=== PATIENT | female | born 1990 | race Caucasian/White ===

== ENCOUNTER 2022-10-20 11:17 | Inpatient (IN) ==
--- NOTE | 2022-10-20 11:30 | Emergency Department Note ---
History of Present Illness General Chief complaint: Abdominal Pain Stated complaint: abd pain Time Seen by Provider: 10/20/22 11:23 History of Present Illness This 31 year old female presents to the emergency department via EMS for evaluation of epigastric and RUQ abdominal pain. Around 9 am this morning she felt like she had a rib cramp and now has pain radiating from her RUQ to her lower abdomen as well as to her chest and shoulders. She then developed nausea and felt like she was going to have diarrhea. Did not have any diarrhea though. Has a BM 3-4 times a week that is usually softer since her bypass surgery. Denies hematochezia or melena. Denies any urinary symptoms or vaginal discharge. Currently has her period. It now hurts to move, talk, or breathe from the pain. She has a history of gastric bypass surgery in 2019 and also has PCOS. History of kidney stones, but this feels different. Denies any injury or trauma. Has not taken anything for the symptoms yet. Allergies Allergy/AdvReac Type Severity Reaction Status Date / Time No Known Allergies Allergy Verified 10/20/22 11:28 Past Med/Surg History Medical History (Updated 10/20/22 @ 18:23 by Veronica Mchugh PA-C) Obesity PCOS (polycystic ovarian syndrome) Surgical History H/O gastric bypass Social History Smoking Status: Unknown if ever smoked Feels Safe at Home: Yes Review of Systems See HPI for pertinent positives & negatives. Physical Exam Vital Signs Vital Signs - 24 hr 10/20/22 11:39 10/20/22 11:39 10/20/22 13:46 Temperature 37 C Temperature Source Oral Pulse Rate 70 Pulse Rate [Apical] 71 82 Respiratory Rate 16 16 16 Respiratory Effort / Characteristics Respiratory Depth Respiratory Pattern Blood Pressure 131/75 Blood Pressure [Left Arm] Blood Pressure Mean 93 Blood Pressure Mean [Left Arm] Pulse Oximetry 99 98 95 Oxygen Delivery Method Room Air Sepsis Recent Fever Within 48 Hours No Sepsis New/Unexplained Change in Mental Status N/A Sepsis Action Taken by Nursing No Action Required 10/20/22 16:32 10/20/22 16:50 10/20/22 17:00 Temperature 37.6 C H Temperature Source Oral Pulse Rate 98 H Pulse Rate [Apical] 100 H 82 Respiratory Rate 16 16 18 Respiratory Effort / Characteristics Non-Labored Spontaneous Respiratory Depth Normal Respiratory Pattern Regular Blood Pressure 122/72 Blood Pressure [Left Arm] 122/72 125/71 Blood Pressure Mean Blood Pressure Mean [Left Arm] 88 89 Pulse Oximetry 99 98 99 Oxygen Delivery Method Room Air Room Air Room Air Sepsis Recent Fever Within 48 Hours Sepsis New/Unexplained Change in Mental Status Sepsis Action Taken by Nursing VITALS: Vitals are noted on the nurse's note and reviewed by myself. GENERAL: The patient appears in pain and nauseous, but nontoxic, in no acute distress, and non-diaphoretic. SKIN: Capillary refill <2 sec. EARS: External auditory canals clear, tympanic membranes pearly larios without erythema or effusion bilaterally. EYES: PERRLA. EOMI. Conjunctivae without injection, sclerae without icterus. NOSE: Patent without discharge. MOUTH: Mucous membranes moist. Uvula midline. Airway patent. NECK: Supple without nuchal rigidity. HEART: Regular rate and rhythm without murmurs gallops or rubs. LUNGS: Clear to auscultation bilaterally without wheezes, rales or rhonchi. No retractions or accessory muscle use. ABDOMEN: Positive bowel sounds x 4. Normal tympanic percussion. Soft, significantly tender to palpation in the right upper quadrant and epigastric area, but also diffusely tender to palpation. No masses or organomegaly. Mild guarding without rebound tenderness. No rigidity. MUSCULOSKELETAL: No gross musculoskeletal defects. NEURO: Patient was alert and oriented to person place and time. No focal neurological deficits. Course Administered Medications Discontinued Medications Fentanyl Citrate (Fentanyl Citrate 100 Mcg/2 Ml Vial) 50 mcg IV NOW STA Stop: 10/20/22 16:13 Last Admin: 10/20/22 16:24 Dose: 50 mcg Documented By: EDA Piperacillin Sod/Tazobactam Sod (Zosyn) 4.5 gm in 120 mls @ 240 mls/hr IV NOW ONE Stop: 10/20/22 16:33 Last Admin: 10/20/22 16:23 Dose: 240 mls/hr Documented By: EDA Sodium Chloride (Nss 1000ml) 1,000 mls @ 999 mls/hr IV .Q1H1M ONE Stop: 10/20/22 17:04 Last Admin: 10/20/22 16:24 Dose: 999 mls/hr Documented By: EDA Ioversol (Optiray 350 100ml) 87 ml IV ONCE ONE Stop: 10/20/22 14:46 Last Admin: 10/20/22 14:45 Dose: 87 ml Documented By: BETSY Ketorolac Tromethamine (Ketorolac Tromethamine 15 Mg/Ml Vial) 10 mg IV NOW ONE Stop: 10/20/22 12:18 Last Admin: 10/20/22 12:36 Dose: 10 mg Documented By: EDA Morphine Sulfate (Morphine Sulfate 4 Mg/Ml 1 Ml Carp\Vial) 4 mg IV NOW STA Stop: 10/20/22 13:30 Last Admin: 10/20/22 13:42 Dose: 4 mg Documented By: EDA Ondansetron HCl (Ondansetron Inj 2 Mg/Ml 2 Ml Vial) 4 mg IV NOW STA Stop: 10/20/22 12:18 Last Admin: 10/20/22 12:36 Dose: 4 mg Documented By: EDA Medical Decision Making Differential Diagnosis Differential diagnosis includes hepatitis, pancreatitis, cholecystitis, cholelithiasis, appendicitis, kidney stone, pyelonephritis, UTI, gastritis, gastroenteritis, mesenteric adenitis, obstruction, constipation, hernia, abdominal abscess, perforation, diverticulitis, IBD, ischemic colitis, abdominal aortic aneurysm, , ectopic , ovarian cyst, ovarian torsion, or others. Laboratory Data Attestation: I reviewed the patient's lab results. 10/20/22 11:44 10/20/22 11:44 Lab Results 10/20/22 10/20/22 10/20/22 Range/Units 11:44 11:44 11:44 WBC 8.39 (4.8-10.8) K/ul RBC 4.89 (3.93-5.22) M/uL Hgb 13.0 (12.0-16.0) g/dl Hct 39.8 (34.1-44.9) % MCV 81.4 (80.0-100.0) fL MCH 26.6 (25.0-34.0) pg MCHC 32.7 (32.0-36.0) g/dL RDW Std Deviation 40.0 (36.4-46.3) fL RDW Coeff of Adonay 13.7 (11.5-14.5) % Plt Count 432 H (130-400) K/uL MPV 10.2 (9.4-12.3) fL Immature Gran % (Auto) 0.2 % Neut % (Auto) 72.7 % Lymph % (Auto) 21.7 % [place] % (Auto) 3.0 % Eos % (Auto) 1.4 % Baso % (Auto) 1.0 % Neut # (Auto) 6.10 (1.4-6.5) K/uL Lymph # (Auto) 1.82 (1.2-3.4) K/uL [place] # (Auto) 0.25 (0.24-0.82) K/uL Eos # (Auto) 0.12 (0-0.50) K/uL Baso # (Auto) 0.08 (0-0.2) K/uL Immature Gran # (Auto) 0.02 (0.00-0.02) K/uL Sodium 138 (136-145) mmol/L Potassium 3.5 (3.5-5.1) mmol/L Chloride 105 (98-107) mmol/L Carbon Dioxide 27 (21-32) mmol/L Anion Gap 6 (3-11) BUN 8 (6-23) mg/dl Creatinine 0.76 (0.6-1.2) mg/dl Est Cr Clr Drug Dosing 120.0 ml/min Est GFR ( Amer) 122.9 ml/min Est GFR (Non-Af Amer) 106.0 ml/min BUN/Creatinine Ratio 10.5 (10-20) Glucose 98 (70-99(Fasting)) mg/dl Calcium 9.0 (8.5-10.1) mg/dl Total Bilirubin 0.6 (0.2-1.0) mg/dl AST 16 (13-39) U/L ALT 13 (7-52) U/L Alkaline Phosphatase 48 (34-104) U/L Troponin I High Sens < 2.3 (0-14) pg/ml Total Protein 7.3 (6.0-8.3) gm/dl Albumin 4.6 (3.4-5.0) gm/dl Globulin 2.7 (2.5-4.0) gm/dl Albumin/Globulin Ratio 1.7 (0.9-2) Lipase 30 (11-82) U/L HCG, Qual Negative (Negative) Urine Color Urine Appearance (Clear) Urine pH (4.5-7.5) Ur Specific [place] (1.000-1.030) Urine Protein (Negative) Urine Glucose (UA) (Negative) Urine Ketones (Negative) Urine Blood (Negative) Urine Nitrite (Negative) Urine Bilirubin (Negative) Urine Urobilinogen (Negative) Ur Leukocyte Esterase (Negative) Urine WBC (Auto) (0-5) /hpf Urine RBC (Auto) (0-4) /hpf U Hyaline Cast (Auto) (0-5) /lpf U Epithel Cells (Auto) (0-5) /lpf Urine Bacteria (Auto) (Negative) Urine Mucus (None Prsent) Urine Yeast 10/20/22 Range/Units Unknown WBC (4.8-10.8) K/ul RBC (3.93-5.22) M/uL Hgb (12.0-16.0) g/dl Hct (34.1-44.9) % MCV (80.0-100.0) fL MCH (25.0-34.0) pg MCHC (32.0-36.0) g/dL RDW Std Deviation (36.4-46.3) fL RDW Coeff of Adonay (11.5-14.5) % Plt Count (130-400) K/uL MPV (9.4-12.3) fL Immature Gran % (Auto) % Neut % (Auto) % Lymph % (Auto) % [place] % (Auto) % Eos % (Auto) % Baso % (Auto) % Neut # (Auto) (1.4-6.5) K/uL Lymph # (Auto) (1.2-3.4) K/uL [place] # (Auto) (0.24-0.82) K/uL Eos # (Auto) (0-0.50) K/uL Baso # (Auto) (0-0.2) K/uL Immature Gran # (Auto) (0.00-0.02) K/uL Sodium (136-145) mmol/L Potassium (3.5-5.1) mmol/L Chloride (98-107) mmol/L Carbon Dioxide (21-32) mmol/L Anion Gap (3-11) BUN (6-23) mg/dl Creatinine (0.6-1.2) mg/dl Est Cr Clr Drug Dosing ml/min Est GFR ( Amer) ml/min Est GFR (Non-Af Amer) ml/min BUN/Creatinine Ratio (10-20) Glucose (70-99(Fasting)) mg/dl Calcium (8.5-10.1) mg/dl Total Bilirubin (0.2-1.0) mg/dl AST (13-39) U/L ALT (7-52) U/L Alkaline Phosphatase (34-104) U/L Troponin I High Sens (0-14) pg/ml Total Protein (6.0-8.3) gm/dl Albumin (3.4-5.0) gm/dl Globulin (2.5-4.0) gm/dl Albumin/Globulin Ratio (0.9-2) Lipase (11-82) U/L HCG, Qual (Negative) Urine Color Yellow Urine Appearance Cloudy A (Clear) Urine pH 5.0 (4.5-7.5) Ur Specific [place] 1.018 (1.000-1.030) Urine Protein Negative (Negative) Urine Glucose (UA) Negative (Negative) Urine Ketones Trace H (Negative) Urine Blood 3+ H (Negative) Urine Nitrite Negative (Negative) Urine Bilirubin Negative (Negative) Urine Urobilinogen Negative (Negative) Ur Leukocyte Esterase Trace H (Negative) Urine WBC (Auto) 1-5 (0-5) /hpf Urine RBC (Auto) 10-30 H (0-4) /hpf U Hyaline Cast (Auto) 0 (0-5) /lpf U Epithel Cells (Auto) >30 H (0-5) /lpf Urine Bacteria (Auto) 1+ H (Negative) Urine Mucus Present A (None Prsent) Urine Yeast Not Reportable Imaging Data Radiologist's Impression: Abdomen/Pelvis CT 10/20/22 12:17 CT OF THE ABDOMEN AND PELVIS WITH CONTRAST CLINICAL HISTORY: Abdominal pain. COMPARISON STUDY: None. TECHNIQUE: Following IV administration of 87 mL of Optiray, axial images of the abdomen and pelvis were obtained from the lung bases to the proximal femurs. Images were reviewed in the axial, sagittal, and coronal planes. IV contrast was administered without complication. Automated exposure control was utilized for the study. A dose lowering technique was utilized adhering to the principles of ALARA. CT DOSE: 796.17 mGycm FINDINGS: Lung bases are unremarkable. Subpleural ground glass opacities reflect atelectasis. Small to moderate pneumoperitoneum is noted. The source is in close proximity to the gastrojejunostomy given adjacent inflammation. There are postoperative findings consistent with Hermila-en-Y gastric bypass. There is no evidence for a bowel obstruction. The liver, spleen, adrenal glands, kidneys and pancreas are normal. There is no biliary or pancreatic ductal dilatation. The appendix is normal. There is no evidence for diverticulitis. Small amount of low-attenuation fluid within the pelvis is present. Major vasculature is patent. IMPRESSION: Small to moderate pneumoperitoneum consistent with ruptured hollow viscus. The perforation is at or in close proximity to the gastrojejunostomy given inflammation. Postoperative findings consistent with Hermila-en-Y gastric bypass. Surgical consultation is recommended. ACT 112: Negative or not required by law. Electronically signed by: Marv Gutierrez M.D. 10/20/2022 3:25 PM Chest X-Ray 10/20/22 12:17 XR chest 1V portable CLINICAL HISTORY: Chest pain, abdominal pain TECHNIQUE: Single frontal radiograph of the chest was obtained. Comparison: None available at the time of this dictation. FINDINGS: No lines and tubes are seen. The cardiomediastinal silhouette is normal. The lungs are clear. No evidence of pleural effusion or pneumothorax. IMPRESSION: No acute abnormalities and in particular no evidence of pneumonia. ACT 112: Negative or not required by law. Electronically signed by: Mario Alberto Billingsley M.D. 10/20/2022 1:08 PM MDM Narrative I examined the patient. An IV lock was placed and labs were drawn. Initially the patient appeared to be anxious, nauseous, and in pain. She was given Toradol 10 mg IV and Zofran 4 mg IV with improvement of her symptoms, but continued with pain. She was then given morphine 4 mg IV followed by fentanyl 50 mcg IV for her pain. She was hydrated with 1 L normal saline solution bolus. CBC without evidence for leukocytosis or anemia. CMP and lipase were normal. Serum hCG was negative. Urinalysis appears contaminated rather than infected, but culture is pending. She currently has her period. Continuous bus monitor: Order was placed for continuous bus monitor. Patient was placed on the bus monitor and continuous pulse ox. Patient was noted to be in normal sinus rhythm at an initial rate of 88 bpm per my interpretation. Initial EKG was interpreted by myself as difficult to interpret because of motion artifact. A repeat EKG after the patient was given pain control and antiemetics was interpreted by myself and showed normal sinus rhythm at 75 bpm with no acute ST or T wave changes. Troponin was negative. Chest x-ray was interpreted by myself as concern for possible free air under the right side of the diaphragm, but radiology report was negative for free air or other acute cardiopulmonary etiologies. CT scan of the abdomen and pelvis with IV contrast was reviewed by myself and read by radiology as above and shows a small to moderate pneumoperitoneum consistent with ruptured hollow viscus. The perforation is at or in close proximity to the gastrojejunostomy given inflammation. Postoperative findings consistent with Hermila-en-Y gastric bypass. The patient was given Zosyn 4.5 g IV as well as an additional 1 L normal saline solution bolus. I spoke with Dr. Kang of surgery who evaluated the patient in the emergency department. He took the patient to the OR for repair of the perforation. Please refer to his dictations for further detail. The patient was taken to the OR in stable condition. Impression & Plan Perforated bowel, Complications of gastric bypass surgery Discharge Plan Visit Data Chief Complaint: Abdominal Pain Stated Complaint: abd pain ED Provider: Johnathon Anderson ED Midlevel Provider: Veronica Mchugh Discharge Problem: Perforated bowel, Complications of gastric bypass surgery Patient Disposition: Admitted As Inpatient Condition: Good Discharge Instructions Interventions: ED Discharge Assessment Last Done: 10/20/22 16:50
[2022-10-20] MEDS ORDERED: KETOROLAC TROMETHAMINE 15 MG/ML VIAL IV ONE (12:17)
[2022-10-20] MEDS ORDERED: ONDANSETRON INJ 2 MG/ML 2 ML VIAL IV STA (12:17)
[2022-10-20 12:55] LABS: Basophils # (auto) 0.08 K/uL (0-0.2); Eosinophils # (auto) 0.12 K/uL (0-0.50); Eosinophils % (auto) 1.4 %; Hematocrit (blood only) 39.8 % (34.1-44.9); Immature Granulocytes # (auto) 0.02 K/uL (0.00-0.02); Immature Granulocytes % (auto) 0.2 %; Lymphocytes # (auto) 1.82 K/uL (1.2-3.4); Lymphocytes % (auto) 21.7 %; Mean Corpuscular Hemoglobin 26.6 pg (25.0-34.0); Mean Corpuscular Hgb Conc 32.7 g/dL (32.0-36.0); Mean Corpuscular Volume 81.4 fL (80.0-100.0); Mean Platelet Volume 10.2 fL (9.4-12.3); Monocytes # (auto) 0.25 K/uL (0.24-0.82); Neutrophils % (auto) 72.7 %; Platelet Count 432 K/uL (130-400); RDW Coefficient of Variation 13.7 % (11.5-14.5); Red Blood Count 4.89 M/uL (3.93-5.22); White Blood Count 8.39 K/ul (4.8-10.8)
[2022-10-20 13:05] LABS: Pregnancy Test, Serum Negative (Negative)
--- NOTE | 2022-10-20 13:09 | XRay Report ---
XR chest 1V portable CLINICAL HISTORY: Chest pain, abdominal pain TECHNIQUE: Single frontal radiograph of the chest was obtained. Comparison: None available at the time of this dictation. FINDINGS: No lines and tubes are seen. The cardiomediastinal silhouette is normal. The lungs are clear. No evid ence of pleural effusion or pneumothorax. IMPRESSION: No acute abnormalities and in particular no evidence of pneumonia. ACT 112: Negative or not required by law. Electronically signed by: Mario Alberto Billingsley M.D. 10/20/2022 1:08 PM
[2022-10-20 13:22] LABS: Alanine Aminotransferase 13 U/L (7-52); Albumin Globulin Ratio 1.7 (0.9-2); Albumin Level 4.6 gm/dl (3.4-5.0); Alkaline Phosphatase 48 U/L (34-104); Anion Gap 6 (3-11); Aspartate Aminotransferase 16 U/L (13-39); BUN Creatinine Ratio 10.5 (10-20); Bilirubin,Total 0.6 mg/dl (0.2-1.0); Blood Urea Nitrogen 8 mg/dl (6-23); Carbon Dioxide 27 mmol/L (21-32); Chloride 105 mmol/L (98-107); Est GFR (African American) 122.9 ml/min; Globulin 2.7 gm/dl (2.5-4.0); Glucose 98 mg/dl (70-99(Fasting)); Lipase 30 U/L (11-82); Potassium 3.5 mmol/L (3.5-5.1); Sodium 138 mmol/L (136-145); Total Protein 7.3 gm/dl (6.0-8.3)
[2022-10-20] MEDS ORDERED: MoRPHine SULFATE 4 MG/ML 1 ML CARP\\VIAL IV STA (13:29)
[2022-10-20 13:30] LABS: Troponin I High Sensitivity < 2.3 pg/ml (0-14)
[2022-10-20 14:04] LABS: Appearance Urine Cloudy (Clear); Bacteria Urine Automated 1+ (Negative); Bilirubin Urine Negative (Negative); Blood Urine 3+ (Negative); Color Urine Yellow; Epithelial Cell Urine Auto >30 /lpf (0-5); Glucose Urine UA Negative (Negative); Ketones Urine Trace (Negative); Leukocyte Esterase Urine Trace (Negative); Nitrite Urine Negative (Negative); Protein Urine Negative (Negative); Specific Gravity Urine 1.018 (1.000-1.030); Urobilinogen Urine Negative (Negative)
[2022-10-20 14:15] LABS: Cast Urine Automated 0 /lpf (0-5); Mucus Urine Present (None Prsent)
[2022-10-20] MEDS ORDERED: OPTIRAY 350 100ml IV ONE (14:45)
--- NOTE | 2022-10-20 15:26 | CT Scan Report ---
CT OF THE ABDOMEN AND PELVIS WITH CONTRAST CLINICAL HISTORY: Abdominal pain. COMPARISON STUDY: None. TECHNIQUE: Following IV administration of 87 mL of Optiray, axial images of the abdomen and pelvis we re obtained from the lung bases to the proximal femurs. Images were reviewed in the axial, sagittal, and coronal planes. IV contrast was administered without complication. Automated exposure control wa s utilized for the study. A dose lowering technique was utilized adhering to the principles of ALARA . CT DOSE: 796.17 mGycm FINDINGS: Lung bases are unremarkable. Subpleural ground glass opacities reflect atelectasis. Small t o moderate pneumoperitoneum is noted. The source is in close proximity to the gastrojejunostomy given adjacent inflammation. There are postoperative findings consistent with Hermila-en-Y gastric bypass. Th ere is no evidence for a bowel obstruction. The liver, spleen, adrenal glands, kidneys and pancreas a re normal. There is no biliary or pancreatic ductal dilatation. The appendix is normal. There is no e vidence for diverticulitis. Small amount of low-attenuation fluid within the pelvis is present. Major vasculature is patent. IMPRESSION: Small to moderate pneumoperitoneum consistent with ruptured hollow viscus. The perforati on is at or in close proximity to the gastrojejunostomy given inflammation. Postoperative findings co nsistent with Hermila-en-Y gastric bypass. Surgical consultation is recommended. ACT 112: Negative or not required by law. Electronically signed by: Mrav Gutierrez M.D. 10/20/2022 3:25 PM
--- NOTE | 2022-10-20 15:50 | Electrocardiogram Report ---
Test Reason : Blood Pressure : / mmHG Vent. Rate : 079 BPM Atrial Rate : 081 BPM P-R Int : 144 ms QRS Dur : 084 ms QT Int : 404 ms P-R-T Axes : 055 102 040 degrees QTc Int : 463 ms Poor data quality, interpretation may be adversely affected Sinus rhythm Rightward axis Possible Anterior infarct , age undetermined Abnormal ECG No previous ECGs available Confirmed by Hrashal Hanna ([id number]) on 10/20/2022 3:50:07 PM Referred By: Confirmed By:Harshal Hanna
[2022-10-20] MEDS ORDERED: PIPERACILLIN/TAZOBACTAM 4.5 GM/120 ML BAG IV ONE (16:04)
[2022-10-20] MEDS ORDERED: SODIUM CHLORIDE 0.9% 1000ML 1,000 ML IV ONE (16:04)
[2022-10-20] MEDS ORDERED: fentaNYL citrate 100 MCG/2 ML VIAL IV STA (16:12)
--- NOTE | 2022-10-20 16:37 | History & Physical Report ---
Date of Service October 20, 2022 Assessment & Plan (1) Perforated bowel: (2) Complications of gastric bypass surgery: Plan 31-year-old woman with what appears to be a perforation of an ulcer at the gastrojejunostomy from her prior Hermila-en-Y gastric bypass surgery. A long discussion with her about the perforation and the necessity of surgery to repair the perforation. We discussed risks and benefits of surgery. All her questions were answered. She is agreeable to proceed. We will take her to the operating room as soon as a room is available. Consent has been obtained. History of Present Illness Chief Complaint: Severe abdominal pain Primary Care Provider: [facility] 31-year-old woman 4 years status post laparoscopic gastric bypass presents after developing severe acute upper abdominal pain this morning. She had severe nausea and vomiting associated with this. She states feeling chilled but no fev er. She denies smoking. She denies NSAID use. CT scan demonstrates what appears to be a perforated ulcer at the gastrojejunostomy junction. Allergies Allergy/AdvReac Type Severity Reaction Status Date / Time No Known Allergies Allergy Verified 10/20/22 11:28 Past Med/Surg History Medical History PCOS (polycystic ovarian syndrome) Surgical History H/O gastric bypass Social History Smoking Status: Unknown if ever smoked Feels Safe at Home: Yes Review of Systems Review of Systems: All systems reviewed & are unremarkable except as noted in HPI & below Physical Exam Constitutional: WD/WN, vitals as above Eyes: PERRL, conjunctivae normal, anicteric sclerae Neck: trachea midline, no thyromegaly Respiratory: normal respiratory effort, lungs clear to auscultation Cardiovascular: RRR, no murmur, no edema Gastrointestinal (Abdomen): Inspection/Auscultation: abdomen normal to inspection; abdomen not distended Percussion/Palpation: + abdomen tender (Severe TTP epigastrium and upper quadrants) and abdomen soft; no guarding and abdomen not rigid Skin: no rashes, warm and dry Psychiatric: A+Ox3, euthymic affect Results & Data Results & Data ([facility]) Vital Signs (Past 12 Hours) Vital Signs Temp Pulse Pulse Resp BP BP Pulse Ox 10/20/22 16:32 100 H 16 122/72 99 10/20/22 13:46 82 16 95 10/20/22 11:39 71 16 98 10/20/22 11:39 37 C 70 16 131/75 99 O2 Del Method 10/20/22 16:32 Room Air 10/20/22 13:46 Room Air 10/20/22 11:39 10/20/22 11:39 Laboratory Results 10/20/22 10/20/22 10/20/22 Range/Units Unknown 11:44 11:44 WBC (4.8-10.8) K/ul RBC (3.93-5.22) M/uL Hgb (12.0-16.0) g/dl Hct (34.1-44.9) % MCV (80.0-100.0) fL MCH (25.0-34.0) pg MCHC (32.0-36.0) g/dL RDW Std Deviation (36.4-46.3) fL RDW Coeff of Adonay (11.5-14.5) % Plt Count (130-400) K/uL MPV (9.4-12.3) fL Immature Gran % (Auto) % Neut % (Auto) % Lymph % (Auto) % Wilcox % (Auto) % Eos % (Auto) % Baso % (Auto) % Neut # (Auto) (1.4-6.5) K/uL Lymph # (Auto) (1.2-3.4) K/uL Wilcox # (Auto) (0.24-0.82) K/uL Eos # (Auto) (0-0.50) K/uL Baso # (Auto) (0-0.2) K/uL Immature Gran # (Auto) (0.00-0.02) K/uL Sodium 138 (136-145) mmol/L Potassium 3.5 (3.5-5.1) mmol/L Chloride 105 (98-107) mmol/L Carbon Dioxide 27 (21-32) mmol/L Anion Gap 6 (3-11) BUN 8 (6-23) mg/dl Creatinine 0.76 (0.6-1.2) mg/dl Est Cr Clr Drug Dosing 120.0 ml/min Est GFR ( Amer) 122.9 ml/min Est GFR (Non-Af Amer) 106.0 ml/min BUN/Creatinine Ratio 10.5 (10-20) Glucose 98 (70-99(Fasting)) mg/dl Calcium 9.0 (8.5-10.1) mg/dl Total Bilirubin 0.6 (0.2-1.0) mg/dl AST 16 (13-39) U/L ALT 13 (7-52) U/L Alkaline Phosphatase 48 (34-104) U/L Troponin I High Sens < 2.3 (0-14) pg/ml Total Protein 7.3 (6.0-8.3) gm/dl Albumin 4.6 (3.4-5.0) gm/dl Globulin 2.7 (2.5-4.0) gm/dl Albumin/Globulin Ratio 1.7 (0.9-2) Lipase 30 (11-82) U/L HCG, Qual Negative (Negative) Urine Color Yellow Urine Appearance Cloudy A (Clear) Urine pH 5.0 (4.5-7.5) Ur Specific Grandy 1.018 (1.000-1.030) Urine Protein Negative (Negative) Urine Glucose (UA) Negative (Negative) Urine Ketones Trace H (Negative) Urine Blood 3+ H (Negative) Urine Nitrite Negative (Negative) Urine Bilirubin Negative (Negative) Urine Urobilinogen Negative (Negative) Ur Leukocyte Esterase Trace H (Negative) Urine WBC (Auto) 1-5 (0-5) /hpf Urine RBC (Auto) 10-30 H (0-4) /hpf U Hyaline Cast (Auto) 0 (0-5) /lpf U Epithel Cells (Auto) >30 H (0-5) /lpf Urine Bacteria (Auto) 1+ H (Negative) Urine Mucus Present A (None Prsent) Urine Yeast Not Reportable 10/20/22 Range/Units 11:44 WBC 8.39 (4.8-10.8) K/ul RBC 4.89 (3.93-5.22) M/uL Hgb 13.0 (12.0-16.0) g/dl Hct 39.8 (34.1-44.9) % MCV 81.4 (80.0-100.0) fL MCH 26.6 (25.0-34.0) pg MCHC 32.7 (32.0-36.0) g/dL RDW Std Deviation 40.0 (36.4-46.3) fL RDW Coeff of Adonay 13.7 (11.5-14.5) % Plt Count 432 H (130-400) K/uL MPV 10.2 (9.4-12.3) fL Immature Gran % (Auto) 0.2 % Neut % (Auto) 72.7 % Lymph % (Auto) 21.7 % Wilcox % (Auto) 3.0 % Eos % (Auto) 1.4 % Baso % (Auto) 1.0 % Neut # (Auto) 6.10 (1.4-6.5) K/uL Lymph # (Auto) 1.82 (1.2-3.4) K/uL Wilcox # (Auto) 0.25 (0.24-0.82) K/uL Eos # (Auto) 0.12 (0-0.50) K/uL Baso # (Auto) 0.08 (0-0.2) K/uL Immature Gran # (Auto) 0.02 (0.00-0.02) K/uL Sodium (136-145) mmol/L Potassium (3.5-5.1) mmol/L Chloride (98-107) mmol/L Carbon Dioxide (21-32) mmol/L Anion Gap (3-11) BUN (6-23) mg/dl Creatinine (0.6-1.2) mg/dl Est Cr Clr Drug Dosing ml/min Est GFR ( Amer) ml/min Est GFR (Non-Af Amer) ml/min BUN/Creatinine Ratio (10-20) Glucose (70-99(Fasting)) mg/dl Calcium (8.5-10.1) mg/dl Total Bilirubin (0.2-1.0) mg/dl AST (13-39) U/L ALT (7-52) U/L Alkaline Phosphatase (34-104) U/L Troponin I High Sens (0-14) pg/ml Total Protein (6.0-8.3) gm/dl Albumin (3.4-5.0) gm/dl Globulin (2.5-4.0) gm/dl Albumin/Globulin Ratio (0.9-2) Lipase (11-82) U/L HCG, Qual (Negative) Urine Color Urine Appearance (Clear) Urine pH (4.5-7.5) Ur Specific Grandy (1.000-1.030) Urine Protein (Negative) Urine Glucose (UA) (Negative) Urine Ketones (Negative) Urine Blood (Negative) Urine Nitrite (Negative) Urine Bilirubin (Negative) Urine Urobilinogen (Negative) Ur Leukocyte Esterase (Negative) Urine WBC (Auto) (0-5) /hpf Urine RBC (Auto) (0-4) /hpf U Hyaline Cast (Auto) (0-5) /lpf U Epithel Cells (Auto) (0-5) /lpf Urine Bacteria (Auto) (Negative) Urine Mucus (None Prsent) Urine Yeast Diagnostic Findings CT OF THE ABDOMEN AND PELVIS WITH CONTRAST CLINICAL HISTORY: Abdominal pain. COMPARISON STUDY: None. TECHNIQUE: Following IV administration of 87 mL of Optiray, axial images of the abdomen and pelvis were obtained from the lung bases to the proximal femurs. Images were reviewed in the axial, sagittal, and coronal planes. IV contrast was administered without complication. Automated exposure control was utilized for the study. A dose lowering technique was utilized adhering to the principles of ALARA. CT DOSE: 796.17 mGycm FINDINGS: Lung bases are unremarkable. Subpleural ground glass opacities reflect atelectasis. Small to moderate pneumoperitoneum is noted. The source is in close proximity to the gastrojejunostomy given adjacent inflammation. There are postoperative findings consistent with Hermila-en-Y gastric bypass. There is no evidence for a bowel obstruction. The liver, spleen, adrenal glands, kidneys and pancreas are normal. There is no biliary or pancreatic ductal dilatation. The appendix is normal. There is no evidence for diverticulitis. Small amount of low-attenuation fluid within the pelvis is present. Major vasculature is patent. IMPRESSION: Small to moderate pneumoperitoneum consistent with ruptured hollow viscus. The perforation is at or in close proximity to the gastrojejunostomy given inflammation. Postoperative findings consistent with Hermila-en-Y gastric bypass. Surgical consultation is recommended.
[2022-10-20] MEDS ORDERED: PHENYLEPHRINE 100MCG/ML 5ML SYR IV PRN (16:39)
[2022-10-20] MEDS ORDERED: ONDANSETRON INJ 2 MG/ML 2 ML VIAL IV PRN (16:39)
[2022-10-20] MEDS ORDERED: HYDROmorphone INJ 1 MG/ML SYRINGE IV PRN (16:39)
[2022-10-20] MEDS ORDERED: ATROPINE SULFATE 0.1 MG/ML 10ML SYR IV PRN (16:39)
[2022-10-20] MEDS ORDERED: ePHEDrine sulfate 50 MG/ML AMP IV PRN (16:39)
[2022-10-20] MEDS ORDERED: MEPERIDINE HCL 25 MG/ML CARP/VIAL IV PRN (16:39)
[2022-10-20] MEDS ORDERED: LABETALOL HCL IV 5 MG/ML 20ML IV PRN (16:39)
[2022-10-20] MEDS ORDERED: ONDANSETRON INJ 2 MG/ML 2 ML VIAL ONE (16:46)
[2022-10-20] MEDS ORDERED: LIDOCAINE 2% 20 MG/ML 5 ML SYR IV ONE (16:46)
[2022-10-20] MEDS ORDERED: SUCCINYLCHOLINE CHLORIDE 20 MG/ML 10 ML VIAL IV ONE (16:46)
[2022-10-20] MEDS ORDERED: MIDAZOLAM HCL 1 MG/ML 2ML VIAL ONE (16:46)
[2022-10-20] MEDS ORDERED: ROCURONIUM BROMIDE 10 MG/ML 5 ML VIAL IV ONE (16:46)
[2022-10-20] MEDS ORDERED: fentaNYL citrate 100 MCG/2 ML VIAL ONE (16:46)
[2022-10-20] MEDS ORDERED: PROPOFOL IV EMULSION 10 MG/ML 20 ML VIAL IV ONE (16:46)
[2022-10-20] MEDS ORDERED: DEXAMETHASONE SOD INJ 4 MG/ML VIAL ONE (16:46)
--- NOTE | 2022-10-20 16:51 | Anesthesiology Consultation ---
Date of Service October 20, 2022 Assessment & Plan (1) Encounter for pre-operative examination: Chart Review Chart Review: Acceptable Risk for Surgery (emergency surgery) and Patient NOT seen in Pre Admission Testing Consults Requested none History Surgery Operation Date: 10/20/22 10:25 Proposed Procedures p Exploratory Laparotomy, Bowel Perforation - Rich Kang MD Height/Weight Height: 5 ft 6 in Weight: 85 kg Allergies Allergy/AdvReac Type Severity Reaction Status Date / Time No Known Allergies Allergy Verified 10/20/22 11:28 Medications Active Medications Generic Name Dose Route Start Last Admin Trade Name Freq PRN Reason Stop Dose Admin Sodium Chloride 1,000 mls @ 999 mls/hr 10/20/22 16:04 10/20/22 16:24 Nss 1000ml IV 10/20/22 17:04 999 mls/hr .Q1H1M ONE Administration Past Medical History Medical History (Updated 10/20/22 @ 16:51 by Sergio Kenny MD) Obesity PCOS (polycystic ovarian syndrome) Past Surgical History Surgical History H/O gastric bypass Social History Smoking Status: Unknown if ever smoked Physical Exam Vital Signs Last Vital Signs Temp 37 C 10/20/22 11:39 Pulse 100 H 10/20/22 16:32 Resp 16 10/20/22 16:32 BP 122/72 10/20/22 16:32 Pulse Ox 99 10/20/22 16:32 O2 Del Method 10/20/22 16:32 Testing Laboratory Results 10/20/22 11:44 10/20/22 11:44 Urine Color Yellow 10/20/22 Unknown Urine Appearance Cloudy (Clear) A 10/20/22 Unknown Urine pH 5.0 (4.5-7.5) 10/20/22 Unknown Ur Specific Husser 1.018 (1.000-1.030) 10/20/22 Unknown Urine Protein Negative (Negative) 10/20/22 Unknown Urine Glucose (UA) Negative (Negative) 10/20/22 Unknown Urine Ketones Trace (Negative) H 10/20/22 Unknown Urine Nitrite Negative (Negative) 10/20/22 Unknown Ur Leukocyte Esterase Trace (Negative) H 10/20/22 Unknown Urine WBC (Auto) 1-5 /hpf (0-5) 10/20/22 Unknown Urine RBC (Auto) 10-30 /hpf (0-4) H 10/20/22 Unknown U Hyaline Cast (Auto) 0 /lpf (0-5) 10/20/22 Unknown U Epithel Cells (Auto) >30 /lpf (0-5) H 10/20/22 Unknown Urine Bacteria (Auto) 1+ (Negative) H 10/20/22 Unknown Electrocardiogram Date: 10/20/22 DICTATED BY:Harshal Hanna MD Test Reason : Blood Pressure : / mmHG Vent. Rate : 079 BPM Atrial Rate : 081 BPM P-R Int : 144 ms QRS Dur : 084 ms QT Int : 404 ms P-R-T Axes : 055 102 040 degrees QTc Int : 463 ms Poor data quality, interpretation may be adversely affected Sinus rhythm Rightward axis Possible Anterior infarct , age undetermined Abnormal ECG No previous ECGs available Confirmed by Harshal Hanna ([id number]) on 10/20/2022 3:50:07 PM Referred By: Confirmed By:Harshal Hanna Chest X-Ray Date: 10/20/22 XR chest 1V portable CLINICAL HISTORY: Chest pain, abdominal pain TECHNIQUE: Single frontal radiograph of the chest was obtained. Comparison: None available at the time of this dictation. FINDINGS: No lines and tubes are seen. The cardiomediastinal silhouette is normal. The lungs are clear. No evidence of pleural effusion or pneumothorax. IMPRESSION: No acute abnormalities and in particular no evidence of pneumonia. ACT 112: Negative or not required by law. Electronically signed by: Mario Alberto Billingsley M.D. 10/20/2022 1:08 PM Dictated:10/20/22 1308 Transcribed: 10/20/[address] OF THE ABDOMEN AND PELVIS WITH CONTRAST CLINICAL HISTORY: Abdominal pain. COMPARISON STUDY: None. TECHNIQUE: Following IV administration of 87 mL of Optiray, axial images of the abdomen and pelvis were obtained from the lung bases to the proximal femurs. Images were reviewed in the axial, sagittal, and coronal planes. IV contrast was administered without complication. Automated exposure control was utilized for the study. A dose lowering technique was utilized adhering to the principles of ALARA. CT DOSE: 796.17 mGycm FINDINGS: Lung bases are unremarkable. Subpleural ground glass opacities reflect atelectasis. Small to moderate pneumoperitoneum is noted. The source is in close proximity to the gastrojejunostomy given adjacent inflammation. There are postoperative findings consistent with Hermila-en-Y gastric bypass. There is no evidence for a bowel obstruction. The liver, spleen, adrenal glands, kidneys and pancreas are normal. There is no biliary or pancreatic ductal dilatation. The appendix is normal. There is no evidence for diverticulitis. Small amount of low-attenuation fluid within the pelvis is present. Major vasculature is patent. IMPRESSION: Small to moderate pneumoperitoneum consistent with ruptured hollow viscus. The perforation is at or in close proximity to the gastrojejunostomy given inflammation. Postoperative findings consistent with Hermila-en-Y gastric bypass. Surgical consultation is recommended. ACT 112: Negative or not required by law. Electronically signed by: Marv Gutierrez M.D. 10/20/2022 3:25 PM Dictated:10/20/22 1512 Transcribed: 10/20/22 1514
[2022-10-20] MEDS ORDERED: ePHEDrine sulfate 50 MG/ML AMP ONE (17:44)
[2022-10-20] MEDS ORDERED: HYDROmorphone INJ 1 MG/ML SYRINGE ONE (18:31)
[2022-10-20] MEDS ORDERED: SUGAMMADEX SODIUM 200 MG/2 ML VIAL IV ONE (18:36)
--- NOTE | 2022-10-20 18:47 | Post Operative Brief Note ---
Immediate Post Op Note v1 Date of Surgery October 20, 2022 Pre & Post Diagnosis Operation Date: 10/20/22 10:25 Pre-Op Diagnosis: abd pain Post-Op Diagnosis: abd pain I identified the patient and participated in the time-out.: Yes Procedure Operation Date: 10/20/22 10:25 Actual Procedures p Exploratory Laparotomy, Bowel Perforation(Not Applicable) - Rich Kang MD Surgeon Rich Kang MD Shipping And Receiving Associate CHELSEA Guillaume assisted with tissue retraction, camera op, closure Estimated Blood Loss 10 Findings Consistent with Post-Op Diagnosis Drains Armen-Schmidt Drain
--- NOTE | 2022-10-20 18:58 | Operative Report ---
Post Operative Report Pre & Post Diagnosis Operation Date: 10/20/22 10:25 Pre-Op Diagnosis: abd pain Post-Op Diagnosis: Perforated ulcer at gastrojejunal anastomosis from prior gastric bypass surgery I identified the patient and participated in the time-out.: Yes Procedure Operation Date: 10/20/22 10:25 Actual Procedures p Exploratory Laparotomy, washout of abdomen, oversewing of perforated gastrojejunostomy anastomotic ulcer, Teo patch, KEN drain placement- Rich Kang MD Surgeon Rich Kang MD Photofinishing Laboratory Worker CHELSEA Guillaume assisted with tissue retraction, camera op, closure Estimated Blood Loss 10 Findings Consistent with Post-Op Diagnosis Small perforation at the gastrojejunostomy junction anteriorly; large amount of murky fluid in the upper abdomen; no evidence of threatened or ischemic bowel Specimens None Drains 19 [place] round KEN drain x1 Anesthesia Type General Complications No immediate complications Indications Apparent perforated ulcer at gastrojejunostomy anastomosis Description of Procedure The patient was taken to the operating room, placed supine on the operating table. A timeout was performed, perioperative antibiotics were administered, SCD boots were placed. After adequate anesthesia and analgesia was obtained, Vazquez catheter was placed, and the area was prepped and draped in the normal sterile fashion. An upper midline incision was made with a 10 blade scalpel and was carried down to the fascia. The fascia was opened down to the peritoneum. The peritoneum was tented up and opened, and the abdomen was entered. There is a moderate amount of murky fluid within the abdomen. This was suctioned. There is inflammatory reaction to the upper left involving the omentum. This was underneath the liver. A Bookwalter retractor was placed. The liver was elevated out of the way. The antecolic, antegastric jejunal limb was identified and traced up towards its anastomosis with the stomach. There was omentum overlying this area. The omentum was gently swept out of the way. On the anterior surface right at the gastrojejunostomy anastomosis, there was a 1 mm opening. When the bowel was squeezed, bowel contents were seen exiting this hole. The remainder of the anastomosis looked intact. There is no ischemia or threatened bowel. The ulcer/perforation was oversewn with interrupted 3-0 silk sutures, approximating the serosa of the stomach to the serosa of the jejunal limb. Once this was complete, a Teo patch was created using a tongue of omentum. This Teo patch was secured with interrupted 3-0 silk sutures, attaching the omentum to the small bowel and stomach in a 360 degree fashion around the perforation. Once was complete, the abdomen was copiously irrigated with 3 L of normal saline. This was suctioned free. Attention was turned hemostasis, which was excellent. A 19 [place] round KEN drain was placed through separate stab incision and sewn into place with a 2-0 nylon suture. The drain was placed to the right of the Teo patch below the liver surface extending back and towards the left. The fascia was reapproximated with running #1 Prolene suture. The skin was closed with surgical clips. Dressings were applied. She tolerated the procedure without complication, transferred in stable condition to the PACU. All instrument, needle, and sponge counts were correct at the end of the case. My respiratory equipment assistant was necessary throughout the procedure for tissue retraction, possible camera operation, and closure of the wounds. I understand that section 1842(b)(7)(D) of the Social Security act generally prohibits Medicare physician fee schedule payment for the services of assistants at surgery in teaching hospitals when qualified residents are available to furnish such services. I certify that the services for which payment is claimed were medically necessary and that no qualified resident was available to perform the services. I further understand that these services are subject to postpayment review by the Medicare carrier. I attest to the content of the Intraoperative Record and any orders documented therein. Any exceptions are noted below.
[2022-10-20] MEDS ORDERED: ACETAMINOPHEN 1000 MG/100 ML IV IV ONE (19:11)
[2022-10-20] MEDS ORDERED: ACETAMINOPHEN 1,000 MG/100 ML VIAL IV STA (19:12)
[2022-10-20] MEDS: fentaNYL citrate 100 MCG/2 ML VIAL IV PRN ×3 (19:14→19:25)
--- NOTE | 2022-10-20 19:43 | Anesthesiology Progress Note ---
Date of Service October 20, 2022 Anesthesia Post Procedure Vital Signs Vital Signs: Temp Pulse Pulse Resp BP BP Pulse Ox 10/20/22 19:30 86 15 100/73 94 10/20/22 19:20 84 16 116/67 100 10/20/22 19:10 85 23 116/73 100 10/20/22 19:00 37.1 C 90 22 125/83 100 10/20/22 17:00 37.6 C H 82 18 125/71 99 10/20/22 16:50 98 H 16 122/72 98 10/20/22 16:32 100 H 16 122/72 99 10/20/22 13:46 82 16 95 10/20/22 11:39 71 16 98 10/20/22 11:39 37 C 70 16 131/75 99 O2 Del Method O2 Flow Rate 10/20/22 19:30 Room Air 10/20/22 19:20 Oxymask 5 10/20/22 19:10 Oxymask 5 10/20/22 19:00 Oxymask 5 10/20/22 17:00 Room Air 10/20/22 16:50 Room Air 10/20/22 16:32 Room Air 10/20/22 13:46 Room Air 10/20/22 11:39 10/20/22 11:39 Pain Intensity Abdomen: Pain Intensity: 2 Transfer of Care Handoff Completed per policy Notes Mental Status: alert / awake / arousable Patient Amnestic to Procedure: Yes Nausea / Vomiting: adequately controlled Pain: adequately controlled Airway Patency, RR, SpO2: stable & adequate BP & HR: stable & adequate Hydration State: stable & adequate Anesthetic Complications: no major complications apparent and Pt Satisfied with anesthetic care
[2022-10-20] MEDS ORDERED: diphenhydrAMINE 50 MG/ML VIAL IV PRN (20:44)
[2022-10-20] MEDS ORDERED: PROMETHAZINE HCL 12.5 MG in SODIUM CHLORIDE 0.9% 50 ML IV PRN (20:44)
[2022-10-20] MEDS: LACTATED RINGER'S 1,000 ML IV SCH (21:07)
[2022-10-20] MEDS: MoRPHine SULFATE 2 MG/ML CARP IV PRN (21:08)
[2022-10-20] MEDS: ACETAMINOPHEN 1,000 MG/100 ML VIAL IV SCH (21:08)
[2022-10-20] MEDS: PANTOprazole 40 MG in SYRINGE 0 ML IV SCH (21:41)
[2022-10-20] MEDS: PIPERACILLIN/TAZOBACTAM 3.375 GM in DEXTROSE 5% 100 ML IV SCH (21:41)
[2022-10-20] MEDS: NICOTINE 7 MG/24 HR TDSY TD SCH (21:56)
[2022-10-21] MEDS: MoRPHine SULFATE 2 MG/ML CARP IV PRN ×4 (03:57→08:43)
[2022-10-21] MEDS: LACTATED RINGER'S 1,000 ML IV SCH ×3 (05:43→21:47)
[2022-10-21] MEDS: ACETAMINOPHEN 1,000 MG/100 ML VIAL IV SCH ×3 (05:44→21:20)
[2022-10-21] MEDS: PIPERACILLIN/TAZOBACTAM 3.375 GM in DEXTROSE 5% 100 ML IV SCH ×3 (06:16→21:20)
[2022-10-21 07:08] LABS: Basophils # (auto) 0.03 K/uL (0-0.2); Basophils % (auto) 0.2 %; Hematocrit (blood only) 30.6 % (34.1-44.9); Hemoglobin 10.5 g/dl (12.0-16.0); Immature Granulocytes # (auto) 0.06 K/uL (0.00-0.02); Immature Granulocytes % (auto) 0.4 %; Lymphocytes % (auto) 7.9 %; Mean Corpuscular Hemoglobin 27.5 pg (25.0-34.0); Mean Corpuscular Hgb Conc 34.3 g/dL (32.0-36.0); Mean Corpuscular Volume 80.1 fL (80.0-100.0); Mean Platelet Volume 10.3 fL (9.4-12.3); Monocytes # (auto) 0.55 K/uL (0.24-0.82); Neutrophils # (auto) 12.18 K/uL (1.4-6.5); Neutrophils % (auto) 87.5 %; Platelet Count 300 K/uL (130-400); RDW Coefficient of Variation 13.4 % (11.5-14.5); Red Blood Count 3.82 M/uL (3.93-5.22); White Blood Count 13.92 K/ul (4.8-10.8)
[2022-10-21] MEDS: PANTOprazole 40 MG in SYRINGE 0 ML IV SCH ×2 (08:42→21:20)
--- NOTE | 2022-10-21 08:59 | Electrocardiogram Report ---
Test Reason : Blood Pressure : / mmHG Vent. Rate : 075 BPM Atrial Rate : 075 BPM P-R Int : 144 ms QRS Dur : 086 ms QT Int : 412 ms P-R-T Axes : 061 101 055 degrees QTc Int : 460 ms Normal sinus rhythm Rightward axis Borderline ECG When compared with ECG of 20-OCT-2022 12:33, No significant change was found Confirmed by Nolan Aranda ([id number]) on 10/21/2022 8:59:12 AM Referred By: REFERRED SELF Confirmed By:Nolan Aranda
[2022-10-21] MEDS ORDERED: Flu Vaccine (Fluarix) 0.5mL SYR (Standard Dose) IM ONE (09:00)
[2022-10-21] MEDS ORDERED: HYDROmorphone INJ 0.5 MG/0.5 ML SYR IV PRN (09:28)
[2022-10-21 09:35] LABS: Albumin Globulin Ratio 1.4 (0.9-2); Albumin Level 3.3 gm/dl (3.4-5.0); BUN Creatinine Ratio 12.3 (10-20); Bilirubin,Total 0.9 mg/dl (0.2-1.0); Calcium 8.5 mg/dl (8.5-10.1); Est GFR (African American) 145.2 ml/min; Est GFR (Non-African American) 125.3 ml/min; Globulin 2.3 gm/dl (2.5-4.0); Potassium 3.8 mmol/L (3.5-5.1); Total Protein 5.6 gm/dl (6.0-8.3)
[2022-10-21] MEDS: HYDROmorphone INJ 1 MG/ML SYRINGE IV PRN ×7 (09:54→23:48)
[2022-10-21] MEDS: NICOTINE 7 MG/24 HR TDSY TD SCH ×2 (10:14→21:20)
[2022-10-21] MEDS: ENOXAPARIN INJ 40 MG/0.4 ML SYR SQ SCH (10:15)
--- NOTE | 2022-10-21 11:14 | Surgery Progress Note ---
Date of Service October 21, 2022 Assessment & Plan (1) Perforated bowel: (2) Complications of gastric bypass surgery: Plan POD # 1 s/p ex lap, repair of perforated gastrojejunostomy ulcer with Grahm patch -afebrile - vss - moderate to severe postop pain, not well controlled this am - jessika drain with serosanguineous output - adequate urine output Plan: Will switch to IV dilaudid prn pain and continue scheduled IV tylenol Continue NPO Continue IV Protonix BID Continue IV Zosyn Encouraged incentive spirometry and OOB to chair and ambulate later today IF ambulates would like to remove Marina today Continue Lovenox and SCDs for DVT prophylaxis Discussed with Dr. Kang who agrees with above. Admission and Anticipated Discharge Date Admission Date: October 20, 2022 Subjective having moderate pain in abdomen, feels postsurgical, not similar to preoperative pain no nausea or vomiting has not been out of bed since surgery still has marina catheter was able to sleep a little last night for 2 hours at a time Physical Exam Constitutional: WD/WN, vitals as above cooperative and comfortable; no acute distress and not ill appearing Neck: normal visual inspection and trachea midline Respiratory: normal respiratory effort; no respiratory distress, no labored breathing and no retractions Gastrointestinal (Abdomen): Inspection/Auscultation: abdomen normal to inspection, + abdominal surgical incision (covered with clean/dry dressing), + abdominal surgical drain present (serosanguineous) and + hypoactive bowel sounds; abdomen not distended and + abnormal bowel sounds Percussion/Palpation: + abdomen tender (generalized but more so at midline incision) and abdomen soft; no guarding, abdomen not rigid and abdomen not firm Skin: no rashes, warm and dry Psychiatric: Orientation: alert and oriented x 3 Results & Data ([facility]) Vital Signs (Past 12 Hours) Vital Signs Temp Pulse Pulse Resp BP Pulse Ox O2 Del Method 10/21/22 07:52 36.7 C 65 16 110/72 98 Room Air 10/21/22 03:47 37.1 C 69 16 110/75 100 Room Air 10/20/22 23:14 62 14 98/61 L 96 Room Air Laboratory Results 10/21/22 10/21/22 10/20/22 Range/Units 06:52 06:52 Unknown WBC 13.92 H (4.8-10.8) K/ul RBC 3.82 L (3.93-5.22) M/uL Hgb 10.5 L (12.0-16.0) g/dl Hct 30.6 L (34.1-44.9) % MCV 80.1 (80.0-100.0) fL MCH 27.5 (25.0-34.0) pg MCHC 34.3 (32.0-36.0) g/dL RDW Std Deviation 39.0 (36.4-46.3) fL RDW Coeff of Adonay 13.4 (11.5-14.5) % Plt Count 300 (130-400) K/uL MPV 10.3 (9.4-12.3) fL Immature Gran % (Auto) 0.4 % Neut % (Auto) 87.5 % Lymph % (Auto) 7.9 % Parke % (Auto) 4.0 % Eos % (Auto) 0.0 % Baso % (Auto) 0.2 % Neut # (Auto) 12.18 H (1.4-6.5) K/uL Lymph # (Auto) 1.10 L (1.2-3.4) K/uL Parke # (Auto) 0.55 (0.24-0.82) K/uL Eos # (Auto) 0.00 (0-0.50) K/uL Baso # (Auto) 0.03 (0-0.2) K/uL Immature Gran # (Auto) 0.06 H (0.00-0.02) K/uL Sodium 136 (136-145) mmol/L Potassium 3.8 (3.5-5.1) mmol/L Chloride 107 (98-107) mmol/L Carbon Dioxide 24 (21-32) mmol/L Anion Gap 5 (3-11) BUN 7 (6-23) mg/dl Creatinine 0.57 L (0.6-1.2) mg/dl Est Cr Clr Drug Dosing 160.0 ml/min Est GFR ( Amer) 145.2 ml/min Est GFR (Non-Af Amer) 125.3 ml/min BUN/Creatinine Ratio 12.3 (10-20) Glucose 107 H (70-99(Fasting)) mg/dl Calcium 8.5 (8.5-10.1) mg/dl Total Bilirubin 0.9 (0.2-1.0) mg/dl AST 11 L (13-39) U/L ALT 10 (7-52) U/L Alkaline Phosphatase 34 (34-104) U/L Troponin I High Sens (0-14) pg/ml Total Protein 5.6 L D (6.0-8.3) gm/dl Albumin 3.3 L (3.4-5.0) gm/dl Globulin 2.3 L (2.5-4.0) gm/dl Albumin/Globulin Ratio 1.4 (0.9-2) Lipase (11-82) U/L HCG, Qual (Negative) Urine Color Yellow Urine Appearance Cloudy A (Clear) Urine pH 5.0 (4.5-7.5) Ur Specific [place] 1.018 (1.000-1.030) Urine Protein Negative (Negative) Urine Glucose (UA) Negative (Negative) Urine Ketones Trace H (Negative) Urine Blood 3+ H (Negative) Urine Nitrite Negative (Negative) Urine Bilirubin Negative (Negative) Urine Urobilinogen Negative (Negative) Ur Leukocyte Esterase Trace H (Negative) Urine WBC (Auto) 1-5 (0-5) /hpf Urine RBC (Auto) 10-30 H (0-4) /hpf U Hyaline Cast (Auto) 0 (0-5) /lpf U Epithel Cells (Auto) >30 H (0-5) /lpf Urine Bacteria (Auto) 1+ H (Negative) Urine Mucus Present A (None Prsent) Urine Yeast Not Reportable SARS-CoV-2, RNA, NAAT (NEGATIVE) 10/20/22 10/20/22 10/20/22 Range/Units 20:35 11:44 11:44 WBC (4.8-10.8) K/ul RBC (3.93-5.22) M/uL Hgb (12.0-16.0) g/dl Hct (34.1-44.9) % MCV (80.0-100.0) fL MCH (25.0-34.0) pg MCHC (32.0-36.0) g/dL RDW Std Deviation (36.4-46.3) fL RDW Coeff of Adonay (11.5-14.5) % Plt Count (130-400) K/uL MPV (9.4-12.3) fL Immature Gran % (Auto) % Neut % (Auto) % Lymph % (Auto) % [place] % (Auto) % Eos % (Auto) % Baso % (Auto) % Neut # (Auto) (1.4-6.5) K/uL Lymph # (Auto) (1.2-3.4) K/uL [place]ke # (Auto) (0.24-0.82) K/uL Eos # (Auto) (0-0.50) K/uL Baso # (Auto) (0-0.2) K/uL Immature Gran # (Auto) (0.00-0.02) K/uL Sodium 138 (136-145) mmol/L Potassium 3.5 (3.5-5.1) mmol/L Chloride 105 (98-107) mmol/L Carbon Dioxide 27 (21-32) mmol/L Anion Gap 6 (3-11) BUN 8 (6-23) mg/dl Creatinine 0.76 (0.6-1.2) mg/dl Est Cr Clr Drug Dosing 120.0 ml/min Est GFR ( Amer) 122.9 ml/min Est GFR (Non-Af Amer) 106.0 ml/min BUN/Creatinine Ratio 10.5 (10-20) Glucose 98 (70-99(Fasting)) mg/dl Calcium 9.0 (8.5-10.1) mg/dl Total Bilirubin 0.6 (0.2-1.0) mg/dl AST 16 (13-39) U/L ALT 13 (7-52) U/L Alkaline Phosphatase 48 (34-104) U/L Troponin I High Sens < 2.3 (0-14) pg/ml Total Protein 7.3 (6.0-8.3) gm/dl Albumin 4.6 (3.4-5.0) gm/dl Globulin 2.7 (2.5-4.0) gm/dl Albumin/Globulin Ratio 1.7 (0.9-2) Lipase 30 (11-82) U/L HCG, Qual Negative (Negative) Urine Color Urine Appearance (Clear) Urine pH (4.5-7.5) Ur Specific [place] (1.000-1.030) Urine Protein (Negative) Urine Glucose (UA) (Negative) Urine Ketones (Negative) Urine Blood (Negative) Urine Nitrite (Negative) Urine Bilirubin (Negative) Urine Urobilinogen (Negative) Ur Leukocyte Esterase (Negative) Urine WBC (Auto) (0-5) /hpf Urine RBC (Auto) (0-4) /hpf U Hyaline Cast (Auto) (0-5) /lpf U Epithel Cells (Auto) (0-5) /lpf Urine Bacteria (Auto) (Negative) Urine Mucus (None Prsent) Urine Yeast SARS-CoV-2, RNA, NAAT NEGATIVE (NEGATIVE) 10/20/22 Range/Units 11:44 WBC 8.39 (4.8-10.8) K/ul RBC 4.89 (3.93-5.22) M/uL Hgb 13.0 (12.0-16.0) g/dl Hct 39.8 (34.1-44.9) % MCV 81.4 (80.0-100.0) fL MCH 26.6 (25.0-34.0) pg MCHC 32.7 (32.0-36.0) g/dL RDW Std Deviation 40.0 (36.4-46.3) fL RDW Coeff of Adonay 13.7 (11.5-14.5) % Plt Count 432 H (130-400) K/uL MPV 10.2 (9.4-12.3) fL Immature Gran % (Auto) 0.2 % Neut % (Auto) 72.7 % Lymph % (Auto) 21.7 % [place]ke % (Auto) 3.0 % Eos % (Auto) 1.4 % Baso % (Auto) 1.0 % Neut # (Auto) 6.10 (1.4-6.5) K/uL Lymph # (Auto) 1.82 (1.2-3.4) K/uL [place]ke # (Auto) 0.25 (0.24-0.82) K/uL Eos # (Auto) 0.12 (0-0.50) K/uL Baso # (Auto) 0.08 (0-0.2) K/uL Immature Gran # (Auto) 0.02 (0.00-0.02) K/uL Sodium (136-145) mmol/L Potassium (3.5-5.1) mmol/L Chloride (98-107) mmol/L Carbon Dioxide (21-32) mmol/L Anion Gap (3-11) BUN (6-23) mg/dl Creatinine (0.6-1.2) mg/dl Est Cr Clr Drug Dosing ml/min Est GFR ( Amer) ml/min Est GFR (Non-Af Amer) ml/min BUN/Creatinine Ratio (10-20) Glucose (70-99(Fasting)) mg/dl Calcium (8.5-10.1) mg/dl Total Bilirubin (0.2-1.0) mg/dl AST (13-39) U/L ALT (7-52) U/L Alkaline Phosphatase (34-104) U/L Troponin I High Sens (0-14) pg/ml Total Protein (6.0-8.3) gm/dl Albumin (3.4-5.0) gm/dl Globulin (2.5-4.0) gm/dl Albumin/Globulin Ratio (0.9-2) Lipase (11-82) U/L HCG, Qual (Negative) Urine Color Urine Appearance (Clear) Urine pH (4.5-7.5) Ur Specific [place] (1.000-1.030) Urine Protein (Negative) Urine Glucose (UA) (Negative) Urine Ketones (Negative) Urine Blood (Negative) Urine Nitrite (Negative) Urine Bilirubin (Negative) Urine Urobilinogen (Negative) Ur Leukocyte Esterase (Negative) Urine WBC (Auto) (0-5) /hpf Urine RBC (Auto) (0-4) /hpf U Hyaline Cast (Auto) (0-5) /lpf U Epithel Cells (Auto) (0-5) /lpf Urine Bacteria (Auto) (Negative) Urine Mucus (None Prsent) Urine Yeast SARS-CoV-2, RNA, NAAT (NEGATIVE)
[2022-10-22] MEDS: HYDROmorphone INJ 1 MG/ML SYRINGE IV PRN ×10 (01:45→21:59)
[2022-10-22] MEDS: PIPERACILLIN/TAZOBACTAM 3.375 GM in DEXTROSE 5% 100 ML IV SCH ×3 (05:15→21:50)
[2022-10-22] MEDS: LACTATED RINGER'S 1,000 ML IV SCH ×3 (05:16→21:30)
[2022-10-22] MEDS: ACETAMINOPHEN 1,000 MG/100 ML VIAL IV SCH ×3 (05:41→21:49)
[2022-10-22 07:23] LABS: Basophils # (auto) 0.02 K/uL (0-0.2); Basophils % (auto) 0.3 %; Eosinophils % (auto) 1.4 %; Hematocrit (blood only) 28.6 % (34.1-44.9); Hemoglobin 9.3 g/dl (12.0-16.0); Immature Granulocytes # (auto) 0.03 K/uL (0.00-0.02); Immature Granulocytes % (auto) 0.4 %; Lymphocytes # (auto) 1.88 K/uL (1.2-3.4); Lymphocytes % (auto) 26.1 %; Mean Corpuscular Hemoglobin 26.6 pg (25.0-34.0); Mean Corpuscular Hgb Conc 32.5 g/dL (32.0-36.0); Mean Corpuscular Volume 81.7 fL (80.0-100.0); Mean Platelet Volume 10.5 fL (9.4-12.3); Monocytes # (auto) 0.45 K/uL (0.24-0.82); Monocytes % (auto) 6.2 %; Neutrophils # (auto) 4.73 K/uL (1.4-6.5); Neutrophils % (auto) 65.6 %; Platelet Count 285 K/uL (130-400); RDW Coefficient of Variation 13.7 % (11.5-14.5); RDW Standard Deviation 40.4 fL (36.4-46.3); White Blood Count 7.21 K/ul (4.8-10.8)
[2022-10-22 07:47] LABS: Albumin Globulin Ratio 1.5 (0.9-2); Albumin Level 3.2 gm/dl (3.4-5.0); BUN Creatinine Ratio 13.5 (10-20); Bilirubin,Total 0.5 mg/dl (0.2-1.0); Calcium 7.9 mg/dl (8.5-10.1); Creatinine Clr Calc Pharmacy 175.3 ml/min; Est GFR (African American) 149.6 ml/min; Est GFR (Non-African American) 129.1 ml/min; Globulin 2.1 gm/dl (2.5-4.0); Potassium 3.4 mmol/L (3.5-5.1); Total Protein 5.3 gm/dl (6.0-8.3)
[2022-10-22] MEDS: ENOXAPARIN INJ 40 MG/0.4 ML SYR SQ SCH (08:15)
[2022-10-22] MEDS: PANTOprazole 40 MG in SYRINGE 0 ML IV SCH ×2 (08:16→20:41)
--- NOTE | 2022-10-22 09:58 | Surgery Progress Note ---
Date of Service October 22, 2022 Assessment & Plan (1) Perforated bowel: (2) Complications of gastric bypass surgery: Plan POD # 2 s/p ex lap, repair of perforated gastrojejunostomy ulcer with Teo patch -afebrile - vss - moderate to severe postop pain, better controlled with Dilaudid - jessika drain with serosanguineous output - adequate urine output Plan: Continue IV dilaudid prn pain and continue scheduled IV tylenol Continue NPO Upper GI series later this morning to r/o leak and then can start clears if normal study Continue IV Protonix BID Continue IV Zosyn continue jessika drain Encouraged incentive spirometry and OOB to chair and ambulate later today Discontinue Marina today Continue Lovenox and SCDs for DVT prophylaxis She will need phase 1 bariatric diet on discharge and will need outpatient GI referral for upper endoscopy in 6 weeks Follow-up with Dr. Kang next for staple removal Dr. Aly covering this weekend Dr. Kang has seen and examined patient who agrees with above. Admission and Anticipated Discharge Date Admission Date: October 20, 2022 Subjective feeling about the same pain is moderate but better controlled with Dilaudid No nausea or vomiting ambulated hallway yesterday evening still has marina catheter Physical Exam Constitutional: WD/WN, vitals as above cooperative and comfortable; no acute distress and not ill appearing Respiratory: normal respiratory effort; no respiratory distress, no labored breathing and no retractions Gastrointestinal (Abdomen): Inspection/Auscultation: abdomen normal to inspection, + abdominal surgical incision (clean/dry/intact , matt intact) and + abdominal surgical drain present (serosanguineous); abdomen not distended Percussion/Palpation: + abdomen tender (at midline incision ) and abdomen soft; no guarding and abdomen not rigid Skin: no rashes, warm and dry Psychiatric: Orientation: alert and oriented x 3 Results & Data ([facility]) Vital Signs (Past 12 Hours) Vital Signs Temp Pulse Resp BP Pulse Ox O2 Del Method 10/22/22 07:04 37.1 C 58 L 16 108/71 96 Room Air Laboratory Results 10/22/22 10/22/22 Range/Units 06:25 06:25 WBC 7.21 (4.8-10.8) K/ul RBC 3.50 L (3.93-5.22) M/uL Hgb 9.3 L (12.0-16.0) g/dl Hct 28.6 L (34.1-44.9) % MCV 81.7 (80.0-100.0) fL MCH 26.6 (25.0-34.0) pg MCHC 32.5 (32.0-36.0) g/dL RDW Std Deviation 40.4 (36.4-46.3) fL RDW Coeff of Adonay 13.7 (11.5-14.5) % Plt Count 285 (130-400) K/uL MPV 10.5 (9.4-12.3) fL Immature Gran % (Auto) 0.4 % Neut % (Auto) 65.6 % Lymph % (Auto) 26.1 % [place] % (Auto) 6.2 % Eos % (Auto) 1.4 % Baso % (Auto) 0.3 % Neut # (Auto) 4.73 (1.4-6.5) K/uL Lymph # (Auto) 1.88 (1.2-3.4) K/uL [place] # (Auto) 0.45 (0.24-0.82) K/uL Eos # (Auto) 0.10 (0-0.50) K/uL Baso # (Auto) 0.02 (0-0.2) K/uL Immature Gran # (Auto) 0.03 H (0.00-0.02) K/uL Sodium 136 (136-145) mmol/L Potassium 3.4 L (3.5-5.1) mmol/L Chloride 105 (98-107) mmol/L Carbon Dioxide 24 (21-32) mmol/L Anion Gap 7 (3-11) BUN 7 (6-23) mg/dl Creatinine 0.52 L (0.6-1.2) mg/dl Est Cr Clr Drug Dosing 175.3 ml/min Est GFR ( Amer) 149.6 ml/min Est GFR (Non-Af Amer) 129.1 ml/min BUN/Creatinine Ratio 13.5 (10-20) Glucose 83 (70-99(Fasting)) mg/dl Calcium 7.9 L (8.5-10.1) mg/dl Total Bilirubin 0.5 (0.2-1.0) mg/dl AST 10 L (13-39) U/L ALT 8 (7-52) U/L Alkaline Phosphatase 31 L (34-104) U/L Total Protein 5.3 L (6.0-8.3) gm/dl Albumin 3.2 L (3.4-5.0) gm/dl Globulin 2.1 L (2.5-4.0) gm/dl Albumin/Globulin Ratio 1.5 (0.9-2)
--- NOTE | 2022-10-22 11:24 | Fluoroscopy Report ---
SINGLE CONTRAST UPPER GI SERIES UTILIZING OPTIRAY CLINICAL HISTORY: s/p repair gastrojejunostomy perf, r/o leak COMPARISON STUDY: CT of the abdomen and pelvis October 20, 2022. FLUOROSCOPY TIME: 1.2 minutes. FLUOROSCOPIC IMAGES: 18 FINDINGS: Single contrast upper GI series was performed utilizing Optiray. Bowling Or Skating Front Desk Clerk image demonstrates s kin matt and surgical drain. There are expected findings following Hermila-en-Y gastric bypass. The g astrojejunostomy is patent. There is no contrast extravasation to suggest residual leak. Caliber of t he opacified jejunum is normal. There is no opacification of the surgical drain. IMPRESSION: No contrast extravasation to suggest residual leak. Expected post surgical findings foll owing repair. ACT 112: Negative or not required by law. Electronically signed by: Marv Gutierrez M.D. 10/22/2022 11:22 AM
[2022-10-22] MEDS: ONDANSETRON INJ 2 MG/ML 2 ML VIAL IV PRN (12:48)
[2022-10-22] MEDS: NICOTINE 7 MG/24 HR TDSY TD SCH (20:42)
[2022-10-23] MEDS: HYDROmorphone INJ 1 MG/ML SYRINGE IV PRN ×10 (00:13→23:46)
[2022-10-23] MEDS: ONDANSETRON INJ 2 MG/ML 2 ML VIAL IV PRN ×3 (05:35→23:48)
[2022-10-23] MEDS: LACTATED RINGER'S 1,000 ML IV SCH ×2 (05:40→14:53)
--- NOTE | 2022-10-23 06:33 | Surgery Progress Note ---
Date of Service October 23, 2022 Assessment & Plan (1) Perforated bowel: Plan: Patient status post exploratory laparotomy with closure of gastrointestinal perforation Patient currently on clear liquids which we will continue She did require some Dilaudid and is also ordered liquid pain medication Drain is serous Continue to mobilize and walk in the hallway We will slowly advance diet but continue on clear liquids today Admission and Anticipated Discharge Date Admission Date: October 20, 2022 Results & Data ([facility]) Vital Signs (Past 12 Hours) Vital Signs Temp Pulse Resp BP Pulse Ox Pulse Ox O2 Del Method 10/22/22 22:21 96 10/22/22 22:21 37.4 C 72 18 134/85 96 Room Air O2 Del Method 10/22/22 22:21 Room Air 10/22/22 22:21 PG Care Time/CCT Total # of Minutes Spent Total Time Spent with Patient: Total time spent is greater than 50% in coordination of care (as documented) at patient's floor/unit and/or counseling patient: Coding Level of Care Code None Diagnoses Perforated bowel K63.1
[2022-10-23] MEDS: ACETAMINOPHEN 1,000 MG/100 ML VIAL IV SCH ×2 (06:37→14:40)
[2022-10-23] MEDS: PIPERACILLIN/TAZOBACTAM 3.375 GM in DEXTROSE 5% 100 ML IV SCH ×3 (06:38→21:10)
[2022-10-23 07:04] LABS: Basophils # (auto) 0.05 K/uL (0-0.2); Basophils % (auto) 0.9 %; Eosinophils # (auto) 0.11 K/uL (0-0.50); Eosinophils % (auto) 2.1 %; Hematocrit (blood only) 30.7 % (34.1-44.9); Hemoglobin 10.1 g/dl (12.0-16.0); Immature Granulocytes # (auto) 0.01 K/uL (0.00-0.02); Immature Granulocytes % (auto) 0.2 %; Lymphocytes # (auto) 1.35 K/uL (1.2-3.4); Lymphocytes % (auto) 25.6 %; Mean Corpuscular Hemoglobin 26.2 pg (25.0-34.0); Mean Corpuscular Hgb Conc 32.9 g/dL (32.0-36.0); Mean Corpuscular Volume 79.7 fL (80.0-100.0); Mean Platelet Volume 10.4 fL (9.4-12.3); Monocytes # (auto) 0.33 K/uL (0.24-0.82); Monocytes % (auto) 6.3 %; Neutrophils # (auto) 3.42 K/uL (1.4-6.5); Neutrophils % (auto) 64.9 %; Platelet Count 284 K/uL (130-400); RDW Coefficient of Variation 13.2 % (11.5-14.5); RDW Standard Deviation 37.4 fL (36.4-46.3); Red Blood Count 3.85 M/uL (3.93-5.22); White Blood Count 5.27 K/ul (4.8-10.8)
[2022-10-23 07:42] LABS: Albumin Globulin Ratio 1.4 (0.9-2); Albumin Level 3.2 gm/dl (3.4-5.0); BUN Creatinine Ratio 9.3 (10-20); Bilirubin,Total 0.6 mg/dl (0.2-1.0); Calcium 8.1 mg/dl (8.5-10.1); Creatinine Clr Calc Pharmacy 168.8 ml/min; Est GFR (African American) 147.8 ml/min; Est GFR (Non-African American) 127.5 ml/min; Globulin 2.3 gm/dl (2.5-4.0); Potassium 3.1 mmol/L (3.5-5.1); Total Protein 5.5 gm/dl (6.0-8.3)
[2022-10-23] MEDS: PANTOprazole 40 MG in SYRINGE 0 ML IV SCH ×2 (09:16→21:09)
[2022-10-23] MEDS: ENOXAPARIN INJ 40 MG/0.4 ML SYR SQ SCH (09:16)
[2022-10-23] MEDS: POTASSIUM CHLORIDE / WTR 10 MEQ/100 ML PLCT IV SCH ×2 (11:54→13:06)
[2022-10-23] MEDS: NICOTINE 7 MG/24 HR TDSY TD SCH (21:09)
[2022-10-24] MEDS: HYDROmorphone INJ 1 MG/ML SYRINGE IV PRN ×9 (02:25→22:02)
[2022-10-24] MEDS: LACTATED RINGER'S 1,000 ML IV SCH (04:07)
[2022-10-24] MEDS: PIPERACILLIN/TAZOBACTAM 3.375 GM in DEXTROSE 5% 100 ML IV SCH ×3 (05:00→21:52)
[2022-10-24 06:37] LABS: Alanine Aminotransferase 8 U/L (7-52); Albumin Globulin Ratio 1.3 (0.9-2); Albumin Level 3.1 gm/dl (3.4-5.0); Alkaline Phosphatase 35 U/L (34-104); Anion Gap 8 (3-11); Aspartate Aminotransferase 10 U/L (13-39); BUN Creatinine Ratio 7.8 (10-20); Bilirubin,Total 0.5 mg/dl (0.2-1.0); Blood Urea Nitrogen 4 mg/dl (6-23); Carbon Dioxide 25 mmol/L (21-32); Chloride 102 mmol/L (98-107); Creatinine Clr Calc Pharmacy 178.8 ml/min; Est GFR (African American) > 150.0 ml/min; Est GFR (Non-African American) 129.9 ml/min; Globulin 2.4 gm/dl (2.5-4.0); Glucose 78 mg/dl (70-99(Fasting)); Magnesium 1.5 mg/dl (1.7-2.4); Phosphorus 4.2 mg/dl (2.5-4.9); Potassium 3.4 mmol/L (3.5-5.1); Sodium 135 mmol/L (136-145); Total Protein 5.5 gm/dl (6.0-8.3)
--- NOTE | 2022-10-24 07:15 | Surgery Progress Note ---
Date of Service October 24, 2022 Assessment & Plan (1) H/O exploratory laparotomy: Plan: Patient with exploratory laparotomy and oversewing of gastrojejunal perforation Her vital signs are stable She has been receiving full liquids and seems to be tolerating these-she would like to stay on liquids Her drain is serous, abdomen is not distended Continue current diet and encourage ambulation in the hallway Encourage patient to try liquid oxy instead of Dilaudid Admission and Anticipated Discharge Date Admission Date: October 20, 2022 Results & Data ([facility]) Vital Signs (Past 12 Hours) Vital Signs Temp Pulse Resp BP Pulse Ox O2 Del Method 10/23/22 21:34 37.2 C 62 18 119/79 95 Room Air PG Care Time/CCT Total # of Minutes Spent Total Time Spent with Patient: Total time spent is greater than 50% in coordination of care (as documented) at patient's floor/unit and/or counseling patient: Coding Level of Care Code None Diagnoses H/O exploratory laparotomy Z98.890
[2022-10-24] MEDS: PANTOprazole 40 MG in SYRINGE 0 ML IV SCH ×2 (08:18→21:53)
[2022-10-24] MEDS: ENOXAPARIN INJ 40 MG/0.4 ML SYR SQ SCH (08:18)
[2022-10-24] MEDS: ONDANSETRON INJ 2 MG/ML 2 ML VIAL IV PRN ×2 (08:18→16:59)
[2022-10-24] MEDS: D5NSS + 20MEQ KCL 20 MEQ/1,000 ML BAG IV SCH (19:43)
[2022-10-24] MEDS: NICOTINE 7 MG/24 HR TDSY TD SCH (21:52)
[2022-10-25] MEDS: HYDROmorphone INJ 1 MG/ML SYRINGE IV PRN ×2 (02:15→08:46)
[2022-10-25] MEDS: PIPERACILLIN/TAZOBACTAM 3.375 GM in DEXTROSE 5% 100 ML IV SCH ×3 (05:43→22:23)
[2022-10-25] MEDS: oxyCODONE HCL SOLN 5 MG/5 ML UDC PO PRN ×4 (05:54→22:23)
[2022-10-25] MEDS ORDERED: HYDROmorphone INJ 0.5 MG/0.5 ML SYR IV PRN (07:23)
[2022-10-25] MEDS: ENOXAPARIN INJ 40 MG/0.4 ML SYR SQ SCH (08:32)
[2022-10-25] MEDS: PANTOprazole 40 MG in SYRINGE 0 ML IV SCH ×2 (08:32→20:37)
[2022-10-25] MEDS: D5NSS + 20MEQ KCL 20 MEQ/1,000 ML BAG IV SCH (08:46)
--- NOTE | 2022-10-25 09:34 | Surgery Progress Note ---
Date of Service October 25, 2022 Assessment & Plan (1) H/O exploratory laparotomy: Plan: Patient with exploratory laparotomy and oversewing of gastrojejunal perforation Her vital signs are stable Keep on full liquids/bariatric phase 2 diet Her drain is serous, abdomen is not distended Encourage p.o. pain medicine, ambulation in cloud Possible discharge to home tomorrow Will remove drain prior to discharge Admission and Anticipated Discharge Date Admission Date: October 20, 2022 Subjective Doing better today. Denies nausea. Has started liquid oxycodone this morning. Tolerating full liquid diet. Physical Exam Gastrointestinal (Abdomen): Inspection/Auscultation: abdomen not distended Percussion/Palpation: abdomen soft; no guarding and abdomen not rigid Incision healing well without erythema or discharge; matt in place KEN drain with minimal serous drainage Skin: no rashes, warm and dry Psychiatric: A+Ox3, euthymic affect Results & Data ([facility]) Vital Signs (Past 12 Hours) Vital Signs Temp Pulse Pulse Resp BP BP Pulse Ox 10/25/22 07:57 37.0 C 73 17 120/80 97 10/24/22 22:12 10/24/22 22:12 36.7 C 61 16 115/72 94 Pulse Ox O2 Del Method O2 Del Method 10/25/22 07:57 Room Air 10/24/22 22:12 94 Room Air 10/24/22 22:12 Room Air
[2022-10-25] MEDS: ONDANSETRON INJ 2 MG/ML 2 ML VIAL IV PRN ×2 (13:18→20:37)
[2022-10-25] MEDS ORDERED: oxyCODONE HCL SOLN 5 MG/5 ML UDC ONE (14:27)
[2022-10-25] MEDS: NICOTINE 7 MG/24 HR TDSY TD SCH (20:32)
[2022-10-26] MEDS: ONDANSETRON INJ 2 MG/ML 2 ML VIAL IV PRN (00:46)
[2022-10-26] MEDS: oxyCODONE HCL SOLN 5 MG/5 ML UDC PO PRN ×2 (02:23→09:17)
[2022-10-26] MEDS: D5NSS + 20MEQ KCL 20 MEQ/1,000 ML BAG IV SCH (02:28)
[2022-10-26] MEDS: PIPERACILLIN/TAZOBACTAM 3.375 GM in DEXTROSE 5% 100 ML IV SCH ×2 (06:01→07:01)
--- NOTE | 2022-10-26 08:17 | Surgery Progress Note ---
Date of Service October 26, 2022 Assessment & Plan (1) H/O exploratory laparotomy: Plan: Patient with exploratory laparotomy and oversewing of gastrojejunal perforation Her vital signs are stable tolerating diet Remove KEN drain We will discharge to home today Follow-up in 2 days in clinic for staple removal Admission and Anticipated Discharge Date Admission Date: October 20, 2022 Subjective Doing better today. Has not required any IV pain medicine. Tolerating full liquid diet. no vomiting, fevers. Physical Exam Constitutional: WD/WN, vitals as above Eyes: PERRL, conjunctivae normal, anicteric sclerae Neck: trachea midline, no thyromegaly Gastrointestinal (Abdomen): Inspection/Auscultation: abdomen normal to inspection; abdomen not distended Percussion/Palpation: + abdomen tender ( Mild incisional tenderness) and abdomen soft; no guarding and abdomen not rigid incision with matt in place, clean and dry; KEN drain with minimal serous output Skin: no rashes, warm and dry Psychiatric: A+Ox3, euthymic affect Results & Data ([facility]) Vital Signs (Past 12 Hours) Vital Signs Temp Pulse Resp BP Pulse Ox O2 Del Method 10/26/22 07:17 36.5 C 59 L 20 118/79 94 Room Air 10/25/22 20:50 37 C 55 L 16 126/80 96 Room Air
[2022-10-26] MEDS: ENOXAPARIN INJ 40 MG/0.4 ML SYR SQ SCH (09:15)
[2022-10-26] MEDS: PANTOprazole 40 MG in SYRINGE 0 ML IV SCH (09:15)
[2022-10-26] MEDS: HYDROmorphone INJ 1 MG/ML SYRINGE IV PRN (12:15)
--- NOTE | 2022-10-27 13:09 | Discharge Summary ---
Date of Service October 27, 2022 Admission HPI Per Admitting Provider 31-year-old woman 4 years status post laparoscopic gastric bypass presents after developing severe acute upper abdominal pain this morning. She had severe nausea and vomiting associated with this. She states feeling chilled but no fever. She denies smoking. She denies NSAID use. CT scan demonstrates what appears to be a perforated ulcer at the gastrojejunostomy junction. Principal Diagnosis Perforated gastrojejunostomy anastomosis Discharge Data Allergies Allergy/AdvReac Type Severity Reaction Status Date / Time No Known Allergies Allergy Verified 10/20/22 11:28 Procedures Performed Operation Date: 10/20/22 10:25 Actual Procedures p Exploratory Laparotomy, Bowel Perforation(Not Applicable) - Rich Kang MD Ordered Studies 10/20/22 12:17 CT abd pelvis IV con only Stat Hospital Course (1) H/O exploratory laparotomy: Patient was taken to operating room for exploratory laparotomy and repair of gastrojejunostomy perforated ulcer. Patient tolerated procedure well and was transferred to recovery then to medical/surgical floor for postoperative care. Her diet was kept NPO, activity OOB to chair, IV Morphine as needed for pain, jessika drain to bulb suction, SCDs and Heparin for DVT prophylaxis. POD # 1 vitals stable,afebrile. Pain moderate to severe and not controlled with Morphine. IV Dilaudid was ordered prn pain instead of Morphine which controlled her pain better. Encouraged OOB to chair and ambulate hallway and incentive spirometry. Vazquez catheter was kept until ambulating better. POD # 2 vitals stable, afebrile. Still NPO. Upper gi series ordered to rule out leak which was unremarkable and diet advance to clear liquids slowly. She was still requiring IV dilaudid for pain management through POD # 3 and #4. Liquid Roxycodone was ordered prn pain which she started taking ON POD # 5. Drain was serous output throughout her postoperative recovery. Patients diet was advanced to full liquids. She was discharged home on POD # 6 in stable condition. Total Time Total Time Spent Total Time Spent (In Minutes): 60 minutes Discharge Plan Discharge Items Patient Disposition: Home - Self-Care Reason For Visit: perforated bowel Discharge Diagnosis: Perforated gastrojejunostomy ulcer Condition on Discharge: Good Activity: Per Instructions section Non-emergency contact: Primary Care Provider and Surgeon Call non-emergency contact if: you have any medication questions, your pain is not controlled, your pain is worsening, you have a fever, your temperature is above 101, your temperature is above 101.5, your wound has increased redness, your wound has increased drainage and your wound pain has increased Follow-up/Referrals: Rich Kang MD [Physician] - 10/28/22 10:45 am PCP,NO [Physician] - Diet: Bariatric Addtl Attending Provider Instructions: Post-Surgical ~Discharge Instructions Activity Recommendations: - lifting limitation: (10 pounds for 6 weeks), - exercise/sex/sports limit: (nonstrenuous until cleared by surgeon), - driving or machine use limit: (none for 1 week, until pain free, and no longer taking narcotic pain medication), - Shower/bathe limit: (may shower, no submerging underwater for 2 weeks) Diet: - Soft Bariatric diet until seen in office SPECIAL CARE INSTRUCTIONS: - May shower. Let water run over area and pat dry. - Surgical matt will be removed in office. - Call the surgeon's office with any questions or concerns - - (ex. temperature higher than 101 degrees F, excessive bleeding or pain). MEDICATIONS: - Resume previous medications unless instructed otherwise by your surgeon. - May take extra strength Tylenol as needed for mild to moderate pain -650 mg Tylenol every 6 hours as needed - AVOID NSAIDS( Ibuprofen, Motrin, Aleve, Aspirin) - Take antacid medication twice a day as prescribed - Take oral antibiotics for 7 days as prescribed - Oxycodone suspension 5 ml every 6 hours, as needed for moderate to severe pain - May take daily stool softener (Colace) while taking narcotic pain medication to prevent constipation or straining. Drink water daily. FOLLOW UP VISIT: - Follow-up scheduled for 10/28/2022 at 10:[address] Kang. Please call the office with any questions/concerns. Office number - You will need a gastroenterology referral for upper endoscopy in 6-8 weeks. We can get you referred at your postop visit. Pending Studies at Discharge: No Stand-Alone Forms: [employer], Work/School Release, Smoking Cessation Medications and DC Order Prescriptions: New pantoprazole 40 mg tablet,delayed release (DR/EC) 40 mg PO BID Qty: 60 1RF amoxicillin-pot clavulanate 875-125 mg tablet 1 tab PO BID Qty: 14 0RF oxycodone 5 mg/5 mL solution 5 mg PO Q6H PRN (Reason: pain) Qty: 200 0RF nicotine [Nicoderm CQ] 7 mg/24 hr patch 24 hour 1 patch transdermal DAILY Qty: 14 1RF ondansetron 4 mg tablet,disintegrating 4 mg PO Q6H PRN (Reason: nausea and vomiting) Qty: 14 0RF Discharge Orders: Discharge Order (Routine); Ordered 10/26/22 Ordered By: Rich Kang Admission Data Admit Date/Time: 10/20/22 19:05 Attending Provider: Rich Kang Admit Provider: Rich Kang Primary Care Provider: [facility] Other Interventions: Discharge Summary Assessment (RN) Last Done: 10/26/22 09:00
== END 2022-10-26 13:02 | disposition home or self-care (01) | DRG 326 ==
LOC: ED 11:17 → OR 17:00 → 3E 19:05